=== PATIENT | female | born 1980 | race Caucasian/White ===

== ENCOUNTER 2020-10-28 21:30 | Emergency (ER) | payer BC ==
[2020-10-28 21:41] VITALS: PULSE 98; TEMP 98.7
[2020-10-28] MEDS ORDERED: ALPRAZolam 0.5 MG TAB PO STA (21:55)
[2020-10-28 22:30] LABS: Basophils # (A) 0.1 k/uL (0-0.2); Basophils % (A) 2 %; Eosinophils # (A) 0.1 k/uL (0-0.7); Eosinophils % (A) 2 %; HGB 12.8 gm/dL (11.4-16.0); Lymphocytes # (A) 1.2 k/uL (1.0-4.8); Lymphocytes % (A) 24 %; MCH 28.5 pg (25.0-35.0); MCHC 32.9 g/dL (31.0-37.0); MCV 86.6 fL (80.0-100.0); Mean Platelet Volume 6.8; Monocytes # (A) 0.3 k/uL (0-1.0); Monocytes % (A) 5 %; Neutrophils # (A) 3.2 k/uL (1.3-7.7); Neutrophils % (A) 66 %; Platelet Count 222 k/uL (150-450); RDW 12.6 % (11.5-15.5); WBC 4.9 k/uL (3.8-10.6)
--- NOTE | 2020-10-28 22:30 | ED ---
General Adult HPI - General Chief complaint: Recheck/Abnormal Lab/Rx Stated complaint: Panic attack Time Seen by Provider: 10/28/20 21:42 Source: patient Mode of arrival: ambulatory Limitations: no limitations - History of Present Illness Initial comments: Patient is a 40-year-old female presenting to the emergency Department with complaints of a possible anxiety and tach. Patient states that her was diagnosed with Covid 2 weeks ago, has been having minimal symptoms and then she started experiencing mild symptoms last week. Patient states her children have also been experiencing mild symptoms and feels like the Covid is been spreading throughout her house. Patient states she has been doing a lot of research on it and has been having anxiety about having Covid. Patient states this evening she tried to calm herself down by watching TV however she experienced an increase in her anxiety, started having numbness and tingling into her hands and her feet and also had to go have a sudden bowel movement. Patient states she felt her symptoms were extremely and wanted to go the ER to be examined. Patient states she does have a history of anxiety but is never had this severe of symptoms. She denies any chest pain, she did admit to some palpitations and sweating during this episode. His knee shortness of breath, no abdominal pain, no nausea or vomiting. She states at this time she still feels slightly diaphoretic, anxious however she feels like her symptoms are minimal at this time. She denies any recent fever or chills, she states that this morning when she woke up she actually felt her normal self again. She denies history of heart disease, no history of asthma or COPD, she is a nonsmoker. She has no other pertinent past medical history. She has no further complaints at this time. Upon arrival to the ER, her vital signs are stable. - Related Data Home Medications Medication Instructions Recorded Confirmed Ascorbic Acid [Vitamin C] 1,000 mg PO HS 10/28/20 10/28/20 Cholecalciferol [Vitamin D3 (25 4,000 unit PO HS 10/28/20 10/28/20 Mcg = 1000 Iu)] Allergies Allergy/AdvReac Type Severity Reaction Status Date / Time No Known Allergies Allergy Verified 10/28/20 22:10 Review of Systems ROS Statement: Those systems with pertinent positive or pertinent negative responses have been documented in the HPI. ROS Other: All systems not noted in ROS Statement are negative. Past Medical History Past Medical History: No Reported History History of Any Multi-Drug Resistant Organisms: None Reported Past Surgical History: Section Smoking Status: Never smoker Past Alcohol Use History: Occasional Past Drug Use History: None Reported General Exam - General Exam Comments Initial Comments: GENERAL: Patient is well-developed and well-nourished. Patient is nontoxic and in no acute distress, does appear mildly anxious. HEAD: Atraumatic, normocephalic. EYES: Pupils equal round and reactive to light, extraocular movements intact, sclera anicteric, conjunctiva are normal. Eyelids were unremarkable. ENT: TMs normal, nares patent, oropharynx clear without exudates. Moist mucous membranes. NECK: Normal range of motion, supple without lymphadenopathy or JVD. LUNGS: Unlabored respirations. Breath sounds clear to auscultation bilaterally and equal. No wheezes rales or rhonchi. HEART: Regular rate and rhythm without murmurs, rubs or gallops. ABDOMEN: Soft, nontender, normoactive bowel sounds. No guarding, no rebound. No masses appreciated. : Deferred MUSCULOSKELETAL: Normal extremities with adequate strength and normal range of motion, no pitting or edema. No clubbing or cyanosis. NEUROLOGICAL: Patient is alert and oriented x 3. Motor and sensory are also intact. Cranial nerves II through XII grossly intact. Symmetrical smile. Normal speech, normal gait. PSYCH: Normal mood, normal affect. SKIN: Warm, Dry, normal turgor, no rashes or lesions noted. Limitations: no limitations Course Vital Signs 10/28/20 10/28/20 21:37 22:38 Temperature 98.7 F Pulse Rate 98 98 Respiratory 18 16 Rate Blood Pressure 118/79 111/68 O2 Sat by Pulse 97 97 Oximetry EKG Findings - EKG Comments: EKG Findings:: Normal sinus rhythm, normal ECG, no acute process seen. Ventricular rate 86, NM interval 132, QT 360. Medical Decision Making - Medical Decision Making She has a 40-year-old female with history anxiety presenting with a possible anxiety attack that started about half hour prior to arrival. She denied any chest pain. EKG shows no acute abnormality, chest x-rays shows no acute process. Labs are normal, troponin is normal, patient was given 0.5 mg of Xanax and reports improvement in her symptoms. I discussed with patient that her symptoms are most likely related to a panic attack. I did recommend following up with her regular doctor for possible medical management. Patient is in agreement with this plan of care. She is requesting to go home. Return parameters were discussed with the patient she verbalized understanding. Case discussed with . - Lab Data Result diagrams: 10/28/20 22:25 10/28/20 22:25 Lab Results 10/28/20 10/28/20 10/28/20 Range/Units 22:25 22:25 22:25 WBC 4.9 (3.8-10.6) k/uL RBC 4.50 (3.80-5.40) m/uL Hgb 12.8 (11.4-16.0) gm/dL Hct 39.0 (34.0-46.0) % MCV 86.6 (80.0-100.0) fL MCH 28.5 (25.0-35.0) pg MCHC 32.9 (31.0-37.0) g/dL RDW 12.6 (11.5-15.5) % Plt Count 222 (150-450) k/uL MPV 6.8 Neutrophils % 66 % Lymphocytes % 24 % Monocytes % 5 % Eosinophils % 2 % Basophils % 2 % Neutrophils # 3.2 (1.3-7.7) k/uL Lymphocytes # 1.2 (1.0-4.8) k/uL Monocytes # 0.3 (0-1.0) k/uL Eosinophils # 0.1 (0-0.7) k/uL Basophils # 0.1 (0-0.2) k/uL Sodium 137 (137-145) mmol/L Potassium 3.7 (3.5-5.1) mmol/L Chloride 105 (98-107) mmol/L Carbon Dioxide 26 (22-30) mmol/L Anion Gap 6 mmol/L BUN 11 (7-17) mg/dL Creatinine 0.75 (0.52-1.04) mg/dL Est GFR (CKD-EPI)AfAm >90 (>60 ml/min/1.73 sqM) Est GFR (CKD-EPI)NonAf >90 (>60 ml/min/1.73 sqM) Glucose 104 H (74-99) mg/dL Calcium 9.1 (8.4-10.2) mg/dL Total Bilirubin 0.3 (0.2-1.3) mg/dL AST 24 (14-36) U/L ALT 14 (4-34) U/L Alkaline Phosphatase 75 (38-126) U/L Troponin I <0.012 (0.000-0.034) ng/mL Total Protein 7.0 (6.3-8.2) g/dL Albumin 4.3 (3.5-5.0) g/dL Disposition Clinical Impression: Anxiety, Panic attack Disposition: HOME SELF-CARE Condition: Stable Instructions (If sedation given, give patient instructions): Anxiety (ED) Additional Instructions: Please return to the Emergency Department if symptoms worsen or any other concerns. Labs, x-ray, EKG are all normal today. Please follow-up with your regular doctor. Is patient prescribed a controlled substance at d/c from ED?: No Referrals: Luisito Simmons MD [Primary Care Provider] - 1-2 days
--- NOTE | 2020-10-28 22:32 | XR ---
EXAMINATION TYPE: XR chest 2V DATE OF EXAM: 10/28/2020 COMPARISON: NONE HISTORY: Palpitations TECHNIQUE: 2 views FINDINGS: Heart and mediastinum are normal. Lungs are clear. Diaphragm is normal. Bony thorax appears normal. There are chest leads. IMPRESSION: Normal chest.
[2020-10-28 22:39] VITALS: BP 111/68; RESP 16
[2020-10-28 22:41] LABS: ALT 14 U/L (4-34); AST 24 U/L (14-36); African American GFR (CKD) >90 (>60 ml/min/1.73 sqM); Albumin 4.3 g/dL (3.5-5.0); Alkaline Phosphatase 75 U/L (38-126); Anion Gap 6 mmol/L; Blood Urea Nitrogen 11 mg/dL (7-17); Calcium 9.1 mg/dL (8.4-10.2); Carbon Dioxide 26 mmol/L (22-30); Chloride 105 mmol/L (98-107); Glucose 104 mg/dL (74-99); Non-African American GFR(CKD) >90 (>60 ml/min/1.73 sqM); Potassium 3.7 mmol/L (3.5-5.1); Sodium 137 mmol/L (137-145); Total Bilirubin 0.3 mg/dL (0.2-1.3)
== END 2020-10-28 23:02 | disposition home or self-care (01) ==
LOC: EC 21:30
DX: F41.0 Panic disorder [episodic paroxysmal anxiety] (principal)
CPT/HCPCS: 36415; 71046; 80053; 84484; 85025; 93005; 99284

== ENCOUNTER → 2021-01-06 | Outpatient (CLI) | payer BC ==
--- NOTE | 2021-01-09 11:56 | CT ---
EXAMINATION TYPE: CT chest wo con DATE OF EXAM: 01/06/2021 COMPARISON: None HISTORY: chest pain x 2 months after having covid CT DLP: 189.1 mGycm, Automated exposure control for dose reduction was used. CONTRAST: Performed injected with 0 mL of Isovue 300. TECHNIQUE: Axial images were obtained at 5 mm thick sections. Reconstructed images are reviewed on [employer] computer in the coronal plane. FINDINGS: Portion of the thyroid visualized is normal. No suspicious lung nodules or focal infiltrates are present. There are scattered bilateral axillary lymph nodes. These are somewhat more prominent on the left, th e largest measures 0.9 cm. No enlarged mediastinal or hilar adenopathy is evident. The ascending aorta diameter at the level of the main pulmonary artery is 3.1 cm. The main pulmonary artery diameter at the bifurcation is 2.[address] sections are obtained through the upper abdomen. Abdomen is essentially unremarkable. IMPRESSIONS: 1. No acute pulmonary process. 2. Scattered bilateral axillary lymph nodes
== END ==
LOC: RADCTMAIN 17:28
PROVIDERS: ATTEND Family Medicine
DX: Z86.19 Personal history of other infectious and parasitic diseases (principal)
CPT/HCPCS: 71250

== ENCOUNTER → 2021-06-01 | Outpatient (CLI) | payer BC ==
--- NOTE | 2021-06-02 04:18 | MR ---
EXAMINATION TYPE: MR brain wo con DATE OF EXAM: 06/01/2021 COMPARISON: None HISTORY: Headaches Multiplanar multiecho imaging of the brain without contrast. Diffusion images show no evidence of an acute infarct. The ventricles have normal size. There is no m ass effect nor midline shift. There is no sign of intracranial hemorrhage. The brainstem is intact. T here is no evidence of cerebral edema. There are a few scattered white matter small foci of increased signal at the rubalcava-white matter junction both cerebral hemispheres. Total number is less than 10. Th mariama measure up to 4 mm. There is no evidence of posterior fossa mass. There is no evidence of orbital mass. Corpus callosum appears normal. There is no evidence of a sellar mass. Optic chiasm appears no rmal. IMPRESSION: There are some scattered small white matter high signal foci. These could relate to microvascular isc hemia. Demyelinating disease at think is unlikely in view of the more peripheral location.
== END | disposition home or self-care (01) ==
LOC: RADMRIMAIN 15:45
PROVIDERS: ATTEND Family Medicine
DX: R90.82 White matter disease, unspecified (principal)
CPT/HCPCS: 70551

== ENCOUNTER → 2021-06-26 | Outpatient (CLI) | payer BC ==
--- NOTE | 2021-07-23 08:01 | ECHOF ---
Referral Reason:R00.2 palpations MEASUREMENTS -------- HEIGHT: 160.0 cm WEIGHT: 65.8 kg BP: RVIDd: 2.6 cm (< 3.3) IVSd: 0.7 cm (0.6 - 1.1) LVIDd: 3.7 cm (3.9 - 5.3) LVPWd: 1.0 cm (0.6 - 1.1) IVSs: 0.9 cm LVIDs: 2.6 cm LVPWs: 1.3 cm LA Diam: 3.3 cm (2.7 - 3.8) Ao Diam: 2.8 cm (2.0 - 3.7) AV Cusp: 1.8 cm (1.5 - 2.6) MV EXCURSION: 17.180 mm (> 18.000) MV EF SLOPE: 91 mm/s (70 - 150) EPSS: 0.3 cm MV E Kam: 0.60 m/s MV DecT: 181 ms MV A Kam: 0.80 m/s MV E/A Ratio: 0.75 RAP: 5.00 mmHg RVSP: 17.25 mmHg FINDINGS -------- Sinus rhythm. This was a technically good study. LV size, wall thickness and systolic function are normal, with an EF greater than 55%. The left fco tricular size is normal. The right ventricle is normal in size. The left atrial size is normal. The right atrial size is normal. The aortic valve is trileaflet, and appears structurally normal. No aortic stenosis or regurgitation. Mild mitral regurgitation is present. Mild tricuspid regurgitation present. Right ventricular systolic pressure is normal at < 35 mmHg. There is no pulmonic regurgitation present. There is no pericardial effusion. CONCLUSIONS -------- 1. LV size, wall thickness and systolic function are normal, with an EF greater than 55%. 2. The left ventricular size is normal. 3. The right ventricle is normal in size. 4. The left atrial size is normal. 5. The right atrial size is normal. 6. The aortic valve is trileaflet, and appears structurally normal. No aortic stenosis or regurgitati on. 7. Mild mitral regurgitation is present. 8. Mild tricuspid regurgitation present. 9. There is no pericardial effusion. UNIVERSITY ARCHIVIST: Cierra Mccullough RDCS
== END | disposition home or self-care (01) ==
LOC: RADECHMAIN 11:23
PROVIDERS: ATTEND Nurse Practitioner Adult Health
DX: I08.1 Rheumatic disorders of both mitral and tricuspid valves (principal)
CPT/HCPCS: 93306

== ENCOUNTER → 2022-02-23 | Outpatient (CLI) | payer BC ==
--- NOTE | 2022-02-24 08:09 | CT ---
EXAMINATION TYPE: CT abdomen pelvis wo con DATE OF EXAM: 02/23/2022 COMPARISON: None HISTORY: left flank pain and hematuria CT DLP: 369 mGycm Examination of the solid and hollow viscera is limited given the lack of contrast. FINDINGS: LUNG BASES: No evidence for nodule. No evidence for infiltrate. LIVER/GB: The gallbladder is unremarkable. No space-occupying hepatic lesion. PANCREAS: No pancreatic mass identified. No inflammatory process seen. SPLEEN: No evidence for splenomegaly. No intrasplenic lesions seen. ADRENALS: No adrenal nodules identified. No evidence for thickening. KIDNEYS: No evidence for renal mass. No nephrolithiasis. No hydronephrosis. BOWEL: Appendix has a normal appearance. No evidence of bowel obstruction. No inflammatory process. Lymph nodes: No evidence for adenopathy greater than 1 cm. Abdominal aorta: Atheromatous changes seen. No evidence for aneurysm. Genital organs: No significant abnormality. Other: No significant abnormality. IMPRESSION: NO EVIDENCE FOR HYDRONEPHROSIS OR OBSTRUCTING NEPHROLITHIASIS.
== END | disposition home or self-care (01) ==
LOC: RADCTMAIN 18:23
PROVIDERS: ATTEND Family Medicine
DX: R31.9 Hematuria, unspecified (principal); R10.9 Unspecified abdominal pain
CPT/HCPCS: 74176

== ENCOUNTER → 2024-01-26 | Outpatient (CLI) | payer BC ==
--- NOTE | 2024-01-26 09:55 | US ---
EXAMINATION TYPE: US pelvic complete DATE OF EXAM: 01/26/2024 COMPARISON: NONE CLINICAL INDICATION: Female, 43 years old with history of N92.0 EXCESSIVE AND FREQUENT MENSTRUATION , R10.9; pelvic pain x 1 year LT > RT TECHNIQUE: Transabdominal (TA). Transabdominal sonographic images of the pelvis were acquired. Date of LMP: 01/13/24 EXAM MEASUREMENTS: Uterus: 9.0x3.9x6.9 cm Endometrial Stripe: 08 cm Right Ovary: 2.2x1.5x1.9 cm Left Ovary: 1.6x1.3x1.3 cm 1. Uterus: Anteverted there is a 3.6x4.2x4.6cm area mesured at the left uterine fundus 2. Endometrium: wnl 3. Right Ovary: 1.2x1.2x1.3cm cystic area 4. Left Ovary: 1.1x1.1x0.9cm cystic area 5. Bilateral Adnexa: Obscured by overlying bowel gas 6. Posterior cul-de-sac: wnl IMPRESSION: Leiomyomatous change of the uterus.
--- NOTE | 2024-01-26 10:03 | US ---
EXAMINATION TYPE: US abdomen complete DATE OF EXAM: 01/26/2024 COMPARISON: NONE CLINICAL INDICATION: Female, 43 years old with history of N92.0 EXCESSIVE AND FREQUENT MENSTRUATION , R10.9; dull left flank pain x 6 months TECHNIQUE: Multiple sonographic images of the abdomen are obtained. FINDINGS: EXAM MEASUREMENTS: Liver Length: 18.5 cm Gallbladder Wall: 0.2 cm CBD: 0.3 cm Spleen: 8.8 cm Right Kidney: 9.9x4.0x5.0 cm Left Kidney: 9.3x5.3x5.4 cm [employer]ER NOTES: Pancreas: Tail obscured by overlying bowel gas Liver: enlarged Gallbladder: wnl Evidence for sonographic Gurrola's sign: No CBD: wnl Spleen: splenule 1.3x1.2x1.1cm Right Kidney: No hydronephrosis or masses seen Left Kidney: possible 0.5cm shadowing echogenic foci Upper IVC: wnl Abd Aorta: wnl exam slightly limited by bowel The intrahepatic portion of the IVC and proximal abdominal aorta are within normal limits. There is no evidence of cholelithiasis. Common bile duct is unremarkable. The visualized portions of the fairchild creas are homogenous. Kidneys are symmetric and free of hydronephrosis. No renal lesions are seen. IMPRESSION: Hepatomegaly
== END | disposition home or self-care (01) ==
LOC: RADUSWWP 08:26
PROVIDERS: ATTEND Family Medicine
DX: D25.9 Leiomyoma of uterus, unspecified (principal); N92.0 Excessive and frequent menstruation with regular cycle; R16.0 Hepatomegaly, not elsewhere classified
CPT/HCPCS: 76700; 76856

== ENCOUNTER → 2024-02-21 | Outpatient (CLI) | payer BC ==
--- NOTE | 2024-02-22 09:59 | NM ---
EXAMINATION TYPE: NM hepatobiliary w EF DATE OF EXAM: 02/21/2024 COMPARISON: NONE INDICATION: Abdomen pain TECHNIQUE: After the intravenous administration of 4.7 mCi Tc 99m Mebrofenin hepatobiliary scintigrap hy is performed. Images were obtained immediately post injection. FINDINGS: There is prompt uptake and excretion of radiotracer by the liver. Extrahepatic ducts are identified at 8 minutes. The gallbladder is visualized within 34 minutes. Small bowel activity is noted within 14 minutes. At one hour 8 ounces of oral ensure plus is given to mimic CCK and gallbladder ejection fraction is c alculated at 93 %, which is elevated range. (Normal >35% and <80%.). IMPRESSION: 1. Correlate for biliary hyperkinesia.
== END | disposition home or self-care (01) ==
LOC: RADNMMAIN 12:42
PROVIDERS: ATTEND Family Medicine
DX: R10.9 Unspecified abdominal pain (principal)
CPT/HCPCS: 78226; A9537